=== PATIENT | female | born 1935 | race Caucasian/White ===

== ENCOUNTER 2016-10-27 15:55 | Inpatient (IN) | payer MEDICARE, OTHER ==
[~2016-10-27] VITALS: Ht 160 cm; Wt 49.5 kg
[~2016-10-27 15:55] MED LIST: ACET-1757 PO; ASPI-621 PO; ATOR40TA78 PO; BISA10SU2 PR; CARV6.2512 PO; CHOL20002 PO; DIGO125T10 PO; IPRA3AMP INH; LEVO25TA4 PO; LISI2.5T PO; LITH300T3 PO; WARF1TAB PO
[2016-10-27] MEDS ORDERED: SODIUM CHLORIDE FLUSH 10ML SYR IVF ONE (16:30)
[2016-10-27 16:59] LABS: ASPARTATE AMINO TRANSFERASE 18 U/L (15-37); BLOOD UREA NITROGEN 10 mg/dL (7-18)
[2016-10-27] MEDS ORDERED: SODIUM CHLORIDE 0.9%, 500ML IVBOLUS ONE (17:00)
[2016-10-27 17:05] LABS: IS PT STATUS REG ER OR PRE ER? YES
[2016-10-27] MEDS ORDERED: ENOXAPARIN 40 MG/0.4 ML SQ SCH (18:30)
[2016-10-27] MEDS ORDERED: BISACODYL 10 MG SUPP PR PRN (18:30)
[2016-10-27] MEDS ORDERED: DOCUSATE 100 MG CAPSULE PO PRN (18:30)
[2016-10-27] MEDS ORDERED: ACETAMINOPHEN 325 MG TABLET PO PRN (18:30)
[2016-10-27] MEDS ORDERED: ENALAPRILAT 1.25 MG/ML, 2ML IVPush PRN (18:30)
[2016-10-27 19:30] VITALS: BP 150/89
[2016-10-27 19:41] LABS: IS PT STATUS REG ER OR PRE ER? NO
[2016-10-27] MEDS ORDERED: WARFARIN 2 MG TABLET PO-COUM ONE (19:55)
[2016-10-27] MEDS: SODIUM CHLORIDE 0.9% 1,000 ML IV SCH (20:41)
[2016-10-27] MEDS: LITHIUM CARBONATE 300 MG CAPSULE PO SCH (20:42)
[2016-10-27 20:49] VITALS: BP 150/71
[2016-10-27] MEDS ORDERED: MAGNESIUM SULFATE PMX 2GM/50ML 50 ML IV ONE (21:30)
[2016-10-28 01:13] LABS: IS PT STATUS REG ER OR PRE ER? NO
[2016-10-28 03:02] VITALS: BP 118/61
[2016-10-28 05:25] LABS: HEMOGLOBIN 11.9 g/dL (11.7-16.4)
[2016-10-28 05:32] LABS: BLOOD UREA NITROGEN 11 mg/dL (7-18)
[2016-10-28 05:35] LABS: ASPARTATE AMINO TRANSFERASE 33 U/L (15-37)
[2016-10-28] MEDS: SODIUM CHLORIDE 0.9% 1,000 ML IV SCH (06:06)
[2016-10-28] MEDS: LEVOTHYROXINE 25 MCG TABLET PO SCH (06:06)
[2016-10-28 06:26] VITALS: BP 125/69
[2016-10-28] MEDS ORDERED: LISINOPRIL 5 MG TABLET PO SCH (09:00)
[2016-10-28 09:15] VITALS: BP 159/84
[2016-10-28] MEDS: LITHIUM CARBONATE 300 MG CAPSULE PO SCH ×2 (09:16→21:11)
[2016-10-28] MEDS ORDERED: ONDANSETRON 2MG/ML, 2ML IVPush PRN (10:30)
[2016-10-28] MEDS ORDERED: ENOXAPARIN 40 MG/0.4 ML SQ SCH ×2 (11:30→21:00)
[2016-10-28 13:50] VITALS: BP 156/65
[2016-10-28] MEDS ORDERED: WARFARIN 5 MG TABLET PO-COUM ONE (18:00)
[2016-10-28 18:36] VITALS: BP 138/65
[2016-10-29 02:13] VITALS: BP 159/78
[2016-10-29] MEDS: LEVOTHYROXINE 25 MCG TABLET PO SCH (05:25)
[2016-10-29 07:03] VITALS: BP 164/67
[2016-10-29] MEDS: LITHIUM CARBONATE 300 MG CAPSULE PO SCH (08:20)
[2016-10-29] MEDS ORDERED: LISINOPRIL 5 MG TABLET PO SCH (09:00)
[2016-10-29 09:53] VITALS: BP 120/64
[2016-10-29] MEDS ORDERED: ASPI-515 PO (10:58)
[2016-10-29] MEDS ORDERED: LISI2.5T PO (10:58)
== END 2016-10-29 14:20 | disposition home or self-care (01) | DRG 309 ==
LOC: ED 17:08 → EDIP 17:51 → 5SO 19:12 → DCLOUNGE 10-29 13:10
PROC: 0T9B70Z Drainage of Bladder with Drainage Device, Via Natural or Artificial Opening (ICD-10-PCS; principal; 2016-10-27)
DX: R00.1 Bradycardia, unspecified (principal); D68.69 Other thrombophilia; E44.0 Moderate protein-calorie malnutrition; Z68.1 Body mass index [BMI] 19.9 or less, adult; R55 Syncope and collapse; I10 Essential (primary) hypertension; I48.91 Unspecified atrial fibrillation; E03.9 Hypothyroidism, unspecified; E86.0 Dehydration; F31.9 Bipolar disorder, unspecified; I11.9 Hypertensive heart disease without heart failure; K52.9 Noninfective gastroenteritis and colitis, unspecified; K59.00 Constipation, unspecified; Z79.899 Other long term (current) drug therapy; Z82.49 Family history of ischemic heart disease and other diseases of the circulatory system; Z83.3 Family history of diabetes mellitus; I25.2 Old myocardial infarction; Z90.49 Acquired absence of other specified parts of digestive tract; Z93.3 Colostomy status; T46.0X5A Adverse effect of cardiac-stimulant glycosides and drugs of similar action, initial encounter; T44.7X5A Adverse effect of beta-adrenoreceptor antagonists, initial encounter
CPT/HCPCS: 36415; 71010; 80053; 80162; 80178; 81001; 82330; 83735; 83880; 84100; 84443; 84484; 85025; 85610; 85730; 87086; 93005; 99285; J1650; J3475; J7030; J7040

== ENCOUNTER → 2017-03-12 | Outpatient (CLI) | payer MEDICARE, OTHER ==
[~2017-03-12] MED LIST changes: +ASPI-515 PO; +LITH300T22 PO; +LOSA50TA6 PO
== END | disposition home or self-care (01) ==
LOC: WOUND 13:07
PROVIDERS: ATTEND Physician Assistant
DX: T81.89XD Other complications of procedures, not elsewhere classified, subsequent encounter (principal); F31.9 Bipolar disorder, unspecified; E03.9 Hypothyroidism, unspecified; I10 Essential (primary) hypertension; I51.7 Cardiomegaly; Z72.89 Other problems related to lifestyle; Z90.710 Acquired absence of both cervix and uterus; Y83.8 Other surgical procedures as the cause of abnormal reaction of the patient, or of later complication, without mention of misadventure at the time of the procedure
CPT/HCPCS: G0463; WOU0463

== ENCOUNTER → 2017-03-18 | Outpatient (CLI) | payer MEDICARE, OTHER ==
[2017-03-18 15:42] LABS: HEMATOCRIT 43.3 % (34.6-47.8); HEMOGLOBIN 14.3 g/dL (11.7-16.4); WHITE BLOOD COUNT 8.3 x10^3/uL (3.4-10)
[2017-03-18 15:52] LABS: ASPARTATE AMINO TRANSFERASE 20 U/L (15-37); BLOOD UREA NITROGEN 13 mg/dL (7-18)
== END | disposition home or self-care (01) ==
LOC: STAR 14:11
PROVIDERS: ATTEND Colon & Rectal Surgery
DX: Z01.818 Encounter for other preprocedural examination (principal); I51.7 Cardiomegaly
CPT/HCPCS: 36415; 80053; 85025; 93005

== ENCOUNTER 2017-03-25 05:51 | Inpatient (IN) | payer MEDICARE, OTHER ==
[2017-03-18 14:57] VITALS: BP 131/78
[~2017-03-25] VITALS: Ht 160 cm; Wt 46.5 kg
[2017-03-25] MEDS ORDERED: LACTATED RINGERS 1,000 ML IV SCH (06:28)
[2017-03-25] MEDS ORDERED: LIDOCAINE 1%, 2ML SQ PRN (06:30)
[2017-03-25] MEDS ORDERED: LEVO25TA4 PO (06:33)
[2017-03-25] MEDS ORDERED: MIDAZOLAM 1 MG/ML, 2ML ONE (06:46)
[2017-03-25] MEDS ORDERED: FENTANYL PF 1000 MCG/20ML ONE (06:46)
[2017-03-25] MEDS ORDERED: BUPIVACAINE/PF 0.5% ONE (06:50)
[2017-03-25] MEDS ORDERED: EPINEPHRINE 1 MG/ML, 1ML ONE (06:50)
[2017-03-25] MEDS ORDERED: GLYCOPYRROLATE 0.2MG/1ML ONE (07:40)
[2017-03-25] MEDS ORDERED: PROPOFOL 10 MG/ML, 20ML ONE (07:40)
[2017-03-25] MEDS ORDERED: DEXAMETHASONE 4 MG/ML, 1ML ONE (07:40)
[2017-03-25] MEDS ORDERED: ONDANSETRON 2MG/ML, 2ML ONE ×2 (07:40→09:47)
[2017-03-25] MEDS ORDERED: SUCCINYLCHOLINE 20 MG/ML, 10ML ONE (07:40)
[2017-03-25] MEDS ORDERED: CEFOTETAN 1 GM ONE (07:40)
[2017-03-25] MEDS ORDERED: ROCURONIUM 10 MG/ML ONE (07:40)
[2017-03-25] MEDS ORDERED: NEOSTIGMINE 1 MG/ML, 10ML ONE (07:40)
[2017-03-25] MEDS ORDERED: BUPIVACAINE/EPI 0.5% 1:200K IM ONE (08:13)
[2017-03-25] MEDS ORDERED: OXYcodone 5 MG/5 ML ORAL.SOL UDC PO PRN (08:30)
[2017-03-25] MEDS ORDERED: ACETAMINOPHEN 325 MG TABLET PO PRN (08:30)
[2017-03-25] MEDS ORDERED: FENTANYL PF 100 MCG/2ML IV PRN (08:30)
[2017-03-25] MEDS ORDERED: ONDANSETRON 2MG/ML, 2ML IVPush PRN (08:30)
[2017-03-25] MEDS ORDERED: LABETALOL 5MG/ML, 20ML IV PRN (08:30)
[2017-03-25] MEDS ORDERED: HYDROmorphone 1 MG/ML, 1ML IV PRN (08:30)
[2017-03-25] MEDS ORDERED: METOCLOPRAMIDE 5 MG/ML, 2ML IV PRN (08:30)
[2017-03-25] MEDS ORDERED: hydrALAzine 20 MG/ML, 1ML IV PRN (08:30)
[2017-03-25] MEDS ORDERED: HYDROmorphone 1 MG/ML, 1ML ONE (09:47)
[2017-03-25 11:00] VITALS: BP 164/71
[2017-03-25] MEDS ORDERED: ONDANSETRON 2MG/ML, 2ML IV PRN (11:30)
[2017-03-25] MEDS ORDERED: morphine SULFATE 10 MG/ML, 1ML IV PRN (11:30)
[2017-03-25] MEDS ORDERED: DIPHENHYDRAMINE 50 MG/ML, 1ML IV PRN (11:30)
[2017-03-25] MEDS ORDERED: DIPHENHYDRAMINE 25 MG CAPSULE PO PRN (11:30)
[2017-03-25] MEDS: POTASSIUM CHLORIDE 20 MEQ in SODIUM CHLORIDE 0.9% 1,000 ML IV SCH (12:36)
[2017-03-25] MEDS: KETOROLAC 30 MG/1 ML IV PRN ×2 (12:55→20:18)
[2017-03-25 13:39] VITALS: BP 136/69
[2017-03-25] MEDS: OXYcodone/APAP 5/325MG TABLET PO PRN ×2 (14:10→20:18)
[2017-03-25] MEDS: CEFOTETAN PMX 1GM/50ML 50 ML IVPB SCH (20:17)
[2017-03-25] MEDS: LITHIUM CARBONATE 300 MG CAPSULE PO SCH (20:17)
[2017-03-25 20:19] VITALS: BP 153/74
[2017-03-25 21:17] VITALS: BP 129/64
[2017-03-26] MEDS: OXYcodone/APAP 5/325MG TABLET PO PRN ×2 (00:21→14:39)
[2017-03-26 02:10] VITALS: BP 126/58
[2017-03-26 04:18] VITALS: BP 106/65
[2017-03-26] MEDS: LEVOTHYROXINE 25 MCG TABLET PO SCH (05:15)
[2017-03-26 05:52] LABS: BLOOD UREA NITROGEN 13 mg/dL (7-18)
[2017-03-26 08:00] VITALS: BP 102/57
[2017-03-26] MEDS: CEFOTETAN PMX 1GM/50ML 50 ML IVPB SCH (08:56)
[2017-03-26] MEDS: ENOXAPARIN 40 MG/0.4 ML SQ SCH (08:57)
[2017-03-26] MEDS: LITHIUM CARBONATE 300 MG CAPSULE PO SCH ×2 (08:58→19:22)
[2017-03-26] MEDS: KETOROLAC 30 MG/1 ML IV PRN ×2 (09:22→19:22)
[2017-03-26] MEDS: POTASSIUM CHLORIDE 20 MEQ in SODIUM CHLORIDE 0.9% 1,000 ML IV SCH (09:22)
[2017-03-26] MEDS ORDERED: POTASSIUM CHLORIDE 20 MEQ in SODIUM CHLORIDE 0.9% 1,000 ML IV SCH (10:00)
[2017-03-26 14:53] VITALS: BP 126/69
[2017-03-26] MEDS: LOSARTAN 25MG TABLET PO SCH (16:50)
[2017-03-26 18:56] VITALS: BP 132/67
[2017-03-27 01:48] VITALS: BP 135/64
[2017-03-27] MEDS: OXYcodone/APAP 5/325MG TABLET PO PRN ×3 (02:37→19:29)
[2017-03-27 05:01] LABS: HEMOGLOBIN 11.7 g/dL (11.7-16.4); WHITE BLOOD COUNT 10.8 x10^3/uL (3.4-10)
[2017-03-27] MEDS: LEVOTHYROXINE 25 MCG TABLET PO SCH (05:13)
[2017-03-27 05:15] LABS: BLOOD UREA NITROGEN 11 mg/dL (7-18)
[2017-03-27 07:59] VITALS: BP 136/67
[2017-03-27] MEDS: LITHIUM CARBONATE 300 MG CAPSULE PO SCH ×2 (09:10→19:29)
[2017-03-27] MEDS: LOSARTAN 25MG TABLET PO SCH (09:10)
[2017-03-27] MEDS: ENOXAPARIN 40 MG/0.4 ML SQ SCH (09:10)
[2017-03-27] MEDS: POLYETHYLENE GLYCOL 17 GM PACKET PO SCH (12:08)
[2017-03-27 13:20] VITALS: BP 150/68
[2017-03-27 19:28] VITALS: BP 157/69
[2017-03-27] MEDS: SODIUM CHLORIDE FLUSH 10ML SYR IVF SCH (19:29)
[2017-03-28 00:34] VITALS: BP 174/79
[2017-03-28] MEDS: OXYcodone/APAP 5/325MG TABLET PO PRN ×2 (01:37→07:47)
[2017-03-28] MEDS: LEVOTHYROXINE 25 MCG TABLET PO SCH (05:22)
[2017-03-28 06:00] LABS: BLOOD UREA NITROGEN 7 mg/dL (7-18)
[2017-03-28 06:04] LABS: HEMATOCRIT 36.8 % (34.6-47.8); HEMOGLOBIN 12.4 g/dL (11.7-16.4); WHITE BLOOD COUNT 10.4 x10^3/uL (3.4-10)
[2017-03-28] MEDS: LITHIUM CARBONATE 300 MG CAPSULE PO SCH (07:37)
[2017-03-28] MEDS: LOSARTAN 25MG TABLET PO SCH (07:37)
[2017-03-28] MEDS: ENOXAPARIN 40 MG/0.4 ML SQ SCH (07:38)
[2017-03-28] MEDS: SODIUM CHLORIDE FLUSH 10ML SYR IVF SCH (07:39)
[2017-03-28] MEDS: POLYETHYLENE GLYCOL 17 GM PACKET PO SCH (07:47)
[2017-03-28 07:55] VITALS: BP 174/67
[2017-03-28 08:53] VITALS: BP 149/68
[2017-03-28] MEDS ORDERED: OXYC-302 PO (12:57)
[2017-03-28] MEDS ORDERED: POLY17PO5 PO (12:58)
== END 2017-03-28 13:37 | disposition home or self-care (01) | DRG 329 ==
LOC: ORIP 05:51 → 4NOR 10:56
PROVIDERS: ADMIT Colon & Rectal Surgery; ATTEND Colon & Rectal Surgery
PROC: 0DBE0ZZ Excision of Large Intestine, Open Approach (ICD-10-PCS; 2017-03-25)
PROC: 0JB80ZZ Excision of Abdomen Subcutaneous Tissue and Fascia, Open Approach (ICD-10-PCS; 2017-03-25)
PROC: 0WUF0JZ Supplement Abdominal Wall with Synthetic Substitute, Open Approach (ICD-10-PCS; principal; 2017-03-25 07:30)
DX: K43.5 Parastomal hernia without obstruction or gangrene (principal); E43 Unspecified severe protein-calorie malnutrition; K94.03 Colostomy malfunction; E46 Unspecified protein-calorie malnutrition; K63.2 Fistula of intestine; Y83.3 Surgical operation with formation of external stoma as the cause of abnormal reaction of the patient, or of later complication, without mention of misadventure at the time of the procedure; K66.0 Peritoneal adhesions (postprocedural) (postinfection)
CPT/HCPCS: 36415; 80048; 82040; 83735; 85025; 88304; J0171; J1100; J1170; J1650; J1885; J2250; J2405; J2704; J2710; J3010; J3480; J3490; C1781; J0330; J0360; J7030; J7120; S0074

== ENCOUNTER 2017-04-12 13:39 | Emergency (ER) | payer MEDICARE, OTHER ==
[~2017-04-12] VITALS: Ht 160 cm; Wt 47.1 kg
[~2017-04-12 13:39] MED LIST changes: +OXYC-302 PO; +POLY17PO5 PO
[2017-04-12 13:41] VITALS: BP 173/76
[2017-04-12 14:15] LABS: HEMATOCRIT 44.5 % (34.6-47.8); HEMOGLOBIN 15.1 g/dL (11.7-16.4); WHITE BLOOD COUNT 10.2 x10^3/uL (3.4-10)
[2017-04-12 14:30] LABS: BLOOD UREA NITROGEN 12 mg/dL (7-18)
[2017-04-12 14:33] LABS: ASPARTATE AMINO TRANSFERASE 16 U/L (15-37)
[2017-04-12] MEDS ORDERED: METHYLNALTREXONE 12 MG/0.6 ML SQ ONE (15:00)
== END 2017-04-12 15:55 | disposition home or self-care (01) ==
LOC: ED 15:40
DX: R10.31 Right lower quadrant pain (principal); E03.9 Hypothyroidism, unspecified; Z93.3 Colostomy status; Z88.8 Allergy status to other drugs, medicaments and biological substances
CPT/HCPCS: 36415; 74022; 80053; 85025; 96372

== ENCOUNTER → 2017-08-06 | Outpatient (CLI) | payer MEDICARE, OTHER | END | disposition home or self-care (01) | LOC: WOUND 07:51 | PROVIDERS: ATTEND Family Medicine | DX: T81.89XD Other complications of procedures, not elsewhere classified, subsequent encounter (principal); E78.5 Hyperlipidemia, unspecified; Y83.8 Other surgical procedures as the cause of abnormal reaction of the patient, or of later complication, without mention of misadventure at the time of the procedure | CPT/HCPCS: G0463; WOU0463 ==

== ENCOUNTER → 2017-08-20 | Outpatient (CLI) | payer MEDICARE, OTHER | END | disposition home or self-care (01) | LOC: WOUND 08:46 | PROVIDERS: ATTEND Family Medicine | DX: Z43.3 Encounter for attention to colostomy (principal); F31.9 Bipolar disorder, unspecified; I10 Essential (primary) hypertension; E03.9 Hypothyroidism, unspecified; E78.5 Hyperlipidemia, unspecified; Z72.89 Other problems related to lifestyle | CPT/HCPCS: G0463; WOU0463 ==

== ENCOUNTER → 2017-12-21 | Outpatient (CLI) | payer MEDICARE, OTHER | END | disposition home or self-care (01) | LOC: WOUND 10:22 | PROVIDERS: ATTEND Internal Medicine Infectious Disease | DX: Z93.3 Colostomy status (principal); F31.9 Bipolar disorder, unspecified; I10 Essential (primary) hypertension; E78.5 Hyperlipidemia, unspecified; E03.9 Hypothyroidism, unspecified | CPT/HCPCS: G0463; WOU0463 ==

== ENCOUNTER → 2018-01-18 | Outpatient (CLI) | payer MEDICARE, OTHER | END | disposition home or self-care (01) | LOC: WOUND 10:47 | PROVIDERS: ATTEND Internal Medicine Infectious Disease | DX: Z93.3 Colostomy status (principal); E78.5 Hyperlipidemia, unspecified; E03.9 Hypothyroidism, unspecified; I10 Essential (primary) hypertension; F31.9 Bipolar disorder, unspecified; Z90.710 Acquired absence of both cervix and uterus | CPT/HCPCS: G0463; WOU0463 ==

== ENCOUNTER → 2019-09-25 | Outpatient (CLI) | payer MEDICARE, OTHER ==
[~2019-09-25] MED LIST changes: -ACET-1757 PO; +ACET-2065 PO; -ASPI-621 PO; +ASPI81TA45 PO; -BISA10SU2 PR; +BISA10SU4 PR; -IPRA3AMP INH; +IPRA3AMP30 INH; +LOSA50TA14 PO; -LOSA50TA6 PO
== END | disposition home or self-care (01) ==
LOC: WOUND 14:11
PROVIDERS: ATTEND Internal Medicine
DX: Z93.3 Colostomy status (principal); E78.5 Hyperlipidemia, unspecified; E03.9 Hypothyroidism, unspecified; F31.9 Bipolar disorder, unspecified; I48.0 Paroxysmal atrial fibrillation; I12.9 Hypertensive chronic kidney disease with stage 1 through stage 4 chronic kidney disease, or unspecified chronic kidney disease; N18.2 Chronic kidney disease, stage 2 (mild); Z90.710 Acquired absence of both cervix and uterus
CPT/HCPCS: G0463

== ENCOUNTER 2020-02-19 06:44 | Emergency (ER) | payer MEDICARE, OTHER ==
[~2020-02-19] VITALS: Ht 162.6 cm; Wt 48.2 kg
[~2020-02-19 06:44] MED LIST changes: -WARF1TAB PO; +WARF1TAB2 PO
--- NOTE | 2020-02-19 07:33 | NUR ---
PT AMBULATED W/ A STANDBY ASSIST TO THE BR. UNABLE TO PROVIDE URINE FOR SAMPLE. PT RETURNED TO ROOM. STRAIGHT CATH'D FOR URINE W/O INCIDENT. PT RESTING ON GURNEY W/ CALL LIGHT IN REACH AND FAMILY AT BEDSIDE. LAB IN ROOM.
[2020-02-19 07:44] LABS: MICROSCOPIC INDICATED
[2020-02-19 07:53] LABS: ALBUMIN 4.1 g/dL (3.4-5.0); ANION GAP 6 mmol/L (5-15); CHLORIDE 104 mmol/L (98-107); CREATININE 1.38 mg/dL (0.55-1.02)
[2020-02-19 08:02] LABS: BASOPHILS # (AUTO) 0.05 x10^3/uL (0-0.1); BASOPHILS % (AUTO) 1 % (0-1); EOSINOPHILS # (AUTO) 0.27 x10^3/uL (0-0.4); EOSINOPHILS % (AUTO) 3 % (1-7); LYMPHOCYTES # (AUTO) 2.41 x10^3/uL (1-3.4); LYMPHOCYTES % (AUTO) 26 % (22-44); MD NO; MEAN CORPUSCULAR HEMOGLOBIN 31.3 pg (27.0-34.8); MEAN CORPUSCULAR HGB CONC 32.1 g/dL (32.4-35.8); MEAN PLATELET VOLUME 8.4 fL (7.4-10.4); MONOCYTES # (AUTO) 0.49 x10^3/uL (0.2-0.8); MONOCYTES % (AUTO) 5 % (2-9); NEUTROPHILS # (AUTO) 5.94 x10^3/uL (1.8-6.8); NEUTROPHILS % (AUTO) 65 % (42-75); PLATELET COUNT 216 x10^3/uL (130-400); RED CELL DISTRIBUTION WIDTH 12.2 % (9.6-15.2)
[2020-02-19 08:25] VITALS: BP 113/93
--- NOTE | 2020-02-19 08:33 | NUR ---
ALL TESTS RESULTED PT IS UP FOR RECHECK, AT BEDSIDE.
[2020-02-19] MEDS ORDERED: CEFTRIAXONE 1,000 MG ONE (08:44)
[2020-02-19] MEDS ORDERED: LIDOCAINE-MPF 1%, 5ML ONE (08:44)
[2020-02-19] MEDS ORDERED: CEFTRIAXONE 1,000 MG IM ONE (09:00)
--- NOTE | 2020-02-19 09:02 | NUR ---
Patient given discharge instructions and they have confirmed that they understand the instructions. Patient wheeled to dc desk.
== END 2020-02-19 09:08 | disposition home or self-care (01) ==
LOC: ED 07:42
DX: N30.00 Acute cystitis without hematuria (principal); Z51.81 Encounter for therapeutic drug level monitoring; E03.9 Hypothyroidism, unspecified
CPT/HCPCS: 36415; 80048; 80178; 81001; 82040; 85025; 87077; 87086; 96372; 99283; J0696

== ENCOUNTER 2020-02-21 23:32 | Observation (INO) | payer MEDICARE, OTHER ==
[~2020-02-21] VITALS: Ht 162.6 cm; Wt 49.6 kg
--- NOTE | 2020-02-21 23:48 | NUR ---
PT BIB [facility] FOR LOWER QUADRANT, BILATERAL, ABDOMINAL PAIN X 2 DAYS WITH NO STOOL OUTPUT INTO COLOSTOMY. PT RECENTLY BEING TREATED FOR UTI WITH OMNICEF, BUT STILL HAVING URINARY SYMPTOMS. UPON ARRIVAL TO [facility] ED, PT ATTACHED TO VS AND CARDIAC MONITORS. VSS AT THIS TIME. PT EDUCATED ON ER PROCESS AND POC WITH DR. LOVE AT . PER EMS, PT ON HIS WAY. PERIPHERAL IV ACCESS ESTABLISHED BY EMS EN ROUTE TO [facility] ED. PT RECEIVED 50MCG FENTANYL AND 250 ML OF NS EN ROUTE. PT HAS CALL LIGHT WITHIN REACH AND DENIES ANY OTHER NEEDS AT THIS TIME. PT AMBULATES TO RESTROOM WITH STEADY GAIT AT THIS TIME FOR UA.
[2020-02-22] MEDS ORDERED: SODIUM CHLORIDE 0.9% 1,000ML IVBOLUS ONE
[2020-02-22] MEDS ORDERED: MORPHINE SULFATE 4 MG/ML, 1ML IVPush PRN
[2020-02-22] MEDS ORDERED: ONDANSETRON 2MG/ML, 2ML IVPush ONE
[2020-02-22 00:20] LABS: BASOPHILS # (AUTO) 0.03 x10^3/uL (0-0.1); BASOPHILS % (AUTO) 0 % (0-1); EOSINOPHILS # (AUTO) 0.24 x10^3/uL (0-0.4); EOSINOPHILS % (AUTO) 3 % (1-7); LYMPHOCYTES # (AUTO) 2.46 x10^3/uL (1-3.4); LYMPHOCYTES % (AUTO) 30 % (22-44); MD NO; MEAN CORPUSCULAR HEMOGLOBIN 32.5 pg (27.0-34.8); MEAN CORPUSCULAR HGB CONC 33.5 g/dL (32.4-35.8); MEAN PLATELET VOLUME 8.5 fL (7.4-10.4); MONOCYTES # (AUTO) 0.43 x10^3/uL (0.2-0.8); MONOCYTES % (AUTO) 5 % (2-9); NEUTROPHILS # (AUTO) 4.99 x10^3/uL (1.8-6.8); NEUTROPHILS % (AUTO) 61 % (42-75); PLATELET COUNT 197 x10^3/uL (130-400); RED BLOOD COUNT 4.44 x10^6/uL (3.82-5.3); RED CELL DISTRIBUTION WIDTH 12.9 % (9.6-15.2)
[2020-02-22 00:32] LABS: ALANINE AMINOTRANSFERASE 31 U/L (12-78); ALBUMIN 3.8 g/dL (3.4-5.0); ANION GAP 7 mmol/L (5-15); CALCIUM 9.2 mg/dL (8.5-10.1); CHLORIDE 106 mmol/L (98-107); CREATININE 1.19 mg/dL (0.55-1.02)
[2020-02-22 00:32] LABS: MICROSCOPIC INDICATED
[2020-02-22 00:35] LABS: ALKALINE PHOSPHATASE 59 U/L (45-117); BILIRUBIN,TOTAL 0.8 mg/dL (0.2-1.0)
--- NOTE | 2020-02-22 00:50 | NUR ---
PT AMBULATES TO [facility] WITH STEADY GAIT TO VOID. PT BACK IN [facility] AND REATTACHED TO ALL VS AND CARDIAC MONITORS. VSS AT THIS TIME. PT TO CT VIA [facility] AT THIS TIME.
[2020-02-22] MEDS ORDERED: OMNIPAQUE 350 MG/ML, 100ML BOTTLE ONE (01:04)
--- NOTE | 2020-02-22 01:05 | NUR ---
pt back from ct via [facility] at this time.
[2020-02-22] MEDS ORDERED: CEFTRIAXONE PMX 1GM/50ML 50 ML ONE (02:38)
[2020-02-22] MEDS ORDERED: CEFD300C37 PO (02:41)
[2020-02-22] MEDS ORDERED: CEFTRIAXONE PMX 1GM/50ML 50 ML IV ONE (03:00)
--- NOTE | 2020-02-22 04:20 | NUR ---
, WILLIAN, POINT OF CARE CONTACT. [phone], CALL FOR UPDATES.
[2020-02-22 04:27] VITALS: BP 179/89
[2020-02-22] MEDS ORDERED: morphine SULFATE 10 MG/ML, 1ML IVPush PRN (05:00)
[2020-02-22] MEDS ORDERED: POTASSIUM CHLORIDE 40 MEQ in SODIUM CHLORIDE 0.9% 500 ML IV ONE (05:00)
[2020-02-22] MEDS ORDERED: LABETALOL 5MG/ML, 20ML IVPush PRN (05:00)
[2020-02-22] MEDS ORDERED: ONDANSETRON 2MG/ML, 2ML IVPush PRN (05:00)
[2020-02-22] MEDS ORDERED: LACTATED RINGERS 1,000 ML IV SCH (05:00)
[2020-02-22 06:45] VITALS: BP 195/93
[2020-02-22 08:00] VITALS: BP 201/105
[2020-02-22 08:58] VITALS: BP 133/75
[2020-02-22 13:25] VITALS: BP 105/62
[2020-02-22] MEDS ORDERED: POLYETHYLENE GLYCOL 17 GM PACKET PO PRN (18:00)
[2020-02-22 19:15] VITALS: BP 150/85
[2020-02-22] MEDS ORDERED: LEVOTHYROXINE 25 MCG TABLET PO SCH (21:00)
[2020-02-23 00:20] VITALS: BP 165/80
[2020-02-23] MEDS ORDERED: CEFTRIAXONE PMX 1GM/50ML 50 ML IV SCH (03:00)
[2020-02-23 05:00] LABS: BASOPHILS # (AUTO) 0.03 x10^3/uL (0-0.1); BASOPHILS % (AUTO) 1 % (0-1); EOSINOPHILS # (AUTO) 0.31 x10^3/uL (0-0.4); EOSINOPHILS % (AUTO) 5 % (1-7); LYMPHOCYTES # (AUTO) 2.11 x10^3/uL (1-3.4); LYMPHOCYTES % (AUTO) 31 % (22-44); MD NO; MEAN CORPUSCULAR HEMOGLOBIN 32.5 pg (27.0-34.8); MEAN CORPUSCULAR HGB CONC 33.2 g/dL (32.4-35.8); MEAN CORPUSCULAR VOLUME 97.7 fL (80-100); MEAN PLATELET VOLUME 8.7 fL (7.4-10.4); MONOCYTES # (AUTO) 0.39 x10^3/uL (0.2-0.8); MONOCYTES % (AUTO) 6 % (2-9); NEUTROPHILS # (AUTO) 4.08 x10^3/uL (1.8-6.8); NEUTROPHILS % (AUTO) 59 % (42-75); PLATELET COUNT 191 x10^3/uL (130-400); RED BLOOD COUNT 4.33 x10^6/uL (3.82-5.3); RED CELL DISTRIBUTION WIDTH 12.9 % (9.6-15.2)
[2020-02-23 05:11] LABS: ANION GAP 3 mmol/L (5-15); CALCIUM 8.7 mg/dL (8.5-10.1); CHLORIDE 113 mmol/L (98-107); CREATININE 0.87 mg/dL (0.55-1.02)
[2020-02-23 06:58] VITALS: BP 131/69
[2020-02-23] MEDS ORDERED: POTASSIUM CHLORIDE 20 MEQ TAB.ER.PRT PO SCH (08:00)
[2020-02-23] MEDS ORDERED: POLYETHYLENE GLYCOL 17 GM PACKET PO SCH (09:23)
[2020-02-23] MEDS ORDERED: CEPH-368 PO (10:02)
[2020-02-23] MEDS ORDERED: POLY17PO5 PO (10:02)
== END 2020-02-23 12:04 | disposition home or self-care (01) ==
LOC: ED 02-22 00:26 → EDIP 02-22 03:40 → INTOOBSV 02-22 03:40 → 3N 02-22 04:23 → DCLOUNGE 02-23 11:46
PROVIDERS: ADMIT Family Medicine; ATTEND Family Medicine
DX: K43.3 Parastomal hernia with obstruction, without gangrene (principal); E87.6 Hypokalemia; K59.00 Constipation, unspecified; N39.0 Urinary tract infection, site not specified; B95.4 Other streptococcus as the cause of diseases classified elsewhere; E86.0 Dehydration; I48.0 Paroxysmal atrial fibrillation; E03.9 Hypothyroidism, unspecified; I10 Essential (primary) hypertension; F31.9 Bipolar disorder, unspecified; N17.0 Acute kidney failure with tubular necrosis; Z90.49 Acquired absence of other specified parts of digestive tract; Z93.3 Colostomy status
CPT/HCPCS: 36415; 74177; 80048; 80053; 81001; 83605; 83690; 83735; 85025; 87086; 96361; 96365; 96366; 96367; 96375; 99285; G0378; J0696; J2405; J3480; J7030; J7040; J7120; Q9967

== ENCOUNTER 2020-03-01 16:03 | Inpatient (IN) | payer MEDICARE, OTHER ==
[~2020-03-01] VITALS: Ht 162.6 cm; Wt 50.0 kg
[~2020-03-01 16:03] MED LIST changes: +CEFD300C37 PO; +CEPH-368 PO; +OMNIPAQUE 350 MG/ML, 100ML BOTTLE ONE
[2020-03-01] MEDS ORDERED: MORPHINE SULFATE 4 MG/ML, 1ML ONE (16:55)
[2020-03-01] MEDS ORDERED: ONDANSETRON 2MG/ML, 2ML ONE ×2 (16:55→19:07)
[2020-03-01] MEDS ORDERED: ONDANSETRON 2MG/ML, 2ML IVPush ONE (17:00)
[2020-03-01] MEDS ORDERED: SODIUM CHLORIDE 0.9% 1,000ML IVBOLUS ONE (17:00)
[2020-03-01] MEDS ORDERED: MORPHINE SULFATE 4 MG/ML, 1ML IVPush PRN ×2 (17:00→23:00)
[2020-03-01 17:01] LABS: BASOPHILS # (AUTO) 0.03 x10^3/uL (0-0.1); BASOPHILS % (AUTO) 0 % (0-1); EOSINOPHILS # (AUTO) 0.05 x10^3/uL (0-0.4); EOSINOPHILS % (AUTO) 1 % (1-7); LYMPHOCYTES # (AUTO) 1.27 x10^3/uL (1-3.4); LYMPHOCYTES % (AUTO) 11 % (22-44); MD NO; MEAN CORPUSCULAR HEMOGLOBIN 32.2 pg (27.0-34.8); MEAN CORPUSCULAR HGB CONC 33.3 g/dL (32.4-35.8); MONOCYTES # (AUTO) 0.28 x10^3/uL (0.2-0.8); MONOCYTES % (AUTO) 3 % (2-9); NEUTROPHILS # (AUTO) 9.63 x10^3/uL (1.8-6.8); NEUTROPHILS % (AUTO) 86 % (42-75); PLATELET COUNT 192 x10^3/uL (130-400); RED BLOOD COUNT 4.89 x10^6/uL (3.82-5.3); RED CELL DISTRIBUTION WIDTH 12.6 % (9.6-15.2)
--- NOTE | 2020-03-01 17:02 | NUR ---
PIV PLACED, LABS DRAWN AND SENT TO LAB WITH LAB STICKERS. IVF RUNNING, MEDS ADMIN PER SEP. PT PREVIOUSLY AMBULATED TO RESTROOM WITH SBA. SPOUSE AT BEDSIDE. PT RESTING COMFORTABLY. NADN. PT DOES NOT WANT BLANKET AT THIS TIME.
[2020-03-01 17:13] LABS: ALANINE AMINOTRANSFERASE 37 U/L (12-78); ALBUMIN 3.6 g/dL (3.4-5.0); ANION GAP 9 mmol/L (5-15); CALCIUM 8.7 mg/dL (8.5-10.1); CHLORIDE 104 mmol/L (98-107); CREATININE 1.05 mg/dL (0.55-1.02)
[2020-03-01 17:15] LABS: ALKALINE PHOSPHATASE 75 U/L (45-117); TOTAL PROTEIN 7.6 g/dL (6.4-8.2)
--- NOTE | 2020-03-01 17:22 | NUR ---
PT AT CT
[2020-03-01] MEDS ORDERED: OMNIPAQUE 350 MG/ML, 100ML BOTTLE ONE (17:24)
--- NOTE | 2020-03-01 17:51 | NUR ---
PT ATTEMPTED TO PROVIDE STOOL FROM OSTOMY, W/O SUCCESS. NO STOOL IN OSTOMY BAG.
--- NOTE | 2020-03-01 18:01 | NUR ---
MD AT BEDSIDE TO UPDATE PT AND SPOUSE ON POC.
--- NOTE | 2020-03-01 18:22 | NUR ---
PT TO BE ADMITTED FOR SURGERY FOR HERNIA.
--- NOTE | 2020-03-01 18:27 | NUR ---
REPORT GIVEN TO OR. PT GOING TO OR SHORTLY.
[2020-03-01] MEDS ORDERED: CHLORHEXIDINE 15 ML UDC ONE (18:30)
[2020-03-01] MEDS ORDERED: BISACODYL 10 MG SUPP PR PRN (19:00)
[2020-03-01] MEDS ORDERED: morphine SULFATE 10 MG/ML, 1ML IVPush PRN (19:00)
[2020-03-01] MEDS ORDERED: FENTANYL PF 100 MCG/2ML ONE ×2 (19:00→21:31)
[2020-03-01] MEDS ORDERED: ACETAMINOPHEN 325 MG TABLET PO PRN (19:00)
[2020-03-01] MEDS ORDERED: ONDANSETRON 2MG/ML, 2ML IVPush PRN (19:00)
[2020-03-01] MEDS ORDERED: NS + 40MEQ KCL 1,000 ML IV SCH (19:00)
[2020-03-01] MEDS ORDERED: PROPOFOL 10 MG/ML, 20ML ONE (19:07)
[2020-03-01] MEDS ORDERED: SUCCINYLCHOLINE 20 MG/ML, 10ML ONE (19:07)
[2020-03-01] MEDS ORDERED: NEOSTIGMINE 1 MG/ML, 10ML ONE (19:07)
[2020-03-01] MEDS ORDERED: GLYCOPYRROLATE 0.2MG/1ML, 5ML ONE (19:07)
[2020-03-01] MEDS ORDERED: DEXAMETHASONE 4 MG/ML, 1ML ONE (19:07)
[2020-03-01] MEDS ORDERED: CEFAZOLIN 1,000 MG ONE (19:07)
[2020-03-01] MEDS ORDERED: ROCURONIUM 10MG/ML,5ML ONE (19:07)
[2020-03-01] MEDS ORDERED: CEFOTETAN 2 GM ONE (19:09)
[2020-03-01] MEDS ORDERED: EPHEDRINE 50 MG/ML, 1ML ONE (19:09)
[2020-03-01] MEDS ORDERED: PHENYLEPHRINE 10 MG/ML ONE (19:09)
[2020-03-01] MEDS ORDERED: SUGAMMADEX 200 MG/2 ML IVPush ONE (19:09)
[2020-03-01] MEDS ORDERED: OXYcodone 5 MG/5 ML ORAL.SOL UDC PO PRN (20:00)
[2020-03-01] MEDS ORDERED: HYDROcodone/APAP 7.5-325MG/15ML UDC PO PRN (20:00)
[2020-03-01] MEDS ORDERED: HYDROmorphone 1 MG/ML, 1ML INJ IVPush PRN (20:00)
[2020-03-01] MEDS ORDERED: PROMETHAZINE 25 MG/ML, 1ML IVPush PRN (20:00)
[2020-03-01] MEDS ORDERED: POTASSIUM CHLORIDE 20 MEQ in SODIUM CHLORIDE 0.9% 250 ML IV ONE (20:00)
[2020-03-01] MEDS ORDERED: MEPERIDINE/PF 25MG/0.5ML IVPush PRN (20:00)
[2020-03-01] MEDS ORDERED: FENTANYL PF 100 MCG/2ML IV PRN (20:00)
[2020-03-01] MEDS ORDERED: LABETALOL 5MG/ML, 20ML ONE (20:42)
[2020-03-01] MEDS ORDERED: ACETAMINOPHEN 650 MG/20.3 ML UDC ONE (21:31)
[2020-03-01] MEDS ORDERED: LABETALOL 5MG/ML, 20ML IV PRN (22:00)
[2020-03-01] MEDS ORDERED: TRAZODONE 50MG TABLET PO PRN (23:00)
[2020-03-01] MEDS ORDERED: DIPHENHYDRAMINE 50 MG/ML, 1ML IVPush PRN (23:00)
[2020-03-01] MEDS ORDERED: LACTATED RINGERS 1,000 ML IV SCH (23:00)
[2020-03-01] MEDS ORDERED: ONDANSETRON 2MG/ML, 2ML IV PRN (23:00)
[2020-03-01] MEDS ORDERED: SCOPOLAMINE 1MG PATCH TD PRN (23:00)
[2020-03-01] MEDS ORDERED: DEXAMETHASONE 4 MG/ML, 1ML IVPush PRN (23:00)
[2020-03-01] MEDS ORDERED: DIPHENHYDRAMINE 25 MG CAPSULE PO PRN (23:00)
[2020-03-01] MEDS ORDERED: LORazepam 2 MG/ML, 1ML IVPush PRN (23:00)
[2020-03-01] MEDS ORDERED: HALOPERIDOL 5 MG/ML IVPush PRN (23:00)
[2020-03-01] MEDS ORDERED: CALCIUM CARBONATE 500 MG TAB.CHEW PO PRN (23:00)
[2020-03-01] MEDS ORDERED: LORazepam 1MG TABLET PO PRN (23:00)
[2020-03-01] MEDS: KETOROLAC 30 MG/1 ML IVPush SCH (23:12)
[2020-03-02 01:01] VITALS: BP 131/81
[2020-03-02 03:17] LABS: ANION GAP 8 mmol/L (5-15); CALCIUM 7.9 mg/dL (8.5-10.1); CHLORIDE 114 mmol/L (98-107); CREATININE 1.04 mg/dL (0.55-1.02)
[2020-03-02 03:24] LABS: BASOPHILS # (AUTO) 0.01 x10^3/uL (0-0.1); BASOPHILS % (AUTO) 0 % (0-1); EOSINOPHILS % (AUTO) 0 % (1-7); LYMPHOCYTES # (AUTO) 0.46 x10^3/uL (1-3.4); LYMPHOCYTES % (AUTO) 5 % (22-44); MD NO; MEAN CORPUSCULAR HEMOGLOBIN 32.4 pg (27.0-34.8); MEAN CORPUSCULAR HGB CONC 33.7 g/dL (32.4-35.8); MEAN PLATELET VOLUME 8.2 fL (7.4-10.4); MONOCYTES # (AUTO) 0.24 x10^3/uL (0.2-0.8); MONOCYTES % (AUTO) 3 % (2-9); NEUTROPHILS # (AUTO) 7.72 x10^3/uL (1.8-6.8); NEUTROPHILS % (AUTO) 92 % (42-75); PLATELET COUNT 163 x10^3/uL (130-400); RED BLOOD COUNT 4.19 x10^6/uL (3.82-5.3); RED CELL DISTRIBUTION WIDTH 12.9 % (9.6-15.2)
[2020-03-02] MEDS: ACETAMINOPHEN 500 MG TABLET PO SCH ×4 (04:01→22:35)
[2020-03-02] MEDS: KETOROLAC 30 MG/1 ML IVPush SCH ×4 (05:15→23:33)
[2020-03-02 05:16] VITALS: BP 119/60
[2020-03-02] MEDS ORDERED: MAGNESIUM SULFATE PMX 2GM/50ML 50 ML IV ONE (07:00)
[2020-03-02 08:00] VITALS: BP 118/66
[2020-03-02] MEDS: ENOXAPARIN 40 MG/0.4 ML SQ SCH (08:45)
[2020-03-02] MEDS: POTASSIUM CHLORIDE 40 MEQ in SODIUM CHLORIDE 0.9% 1,000 ML IV SCH ×2 (08:45→23:32)
[2020-03-02 13:40] VITALS: BP 110/62
[2020-03-02] MEDS: LEVOTHYROXINE 25 MCG TABLET PO SCH (21:00)
[2020-03-02 21:57] VITALS: BP 172/68
[2020-03-03 01:12] VITALS: BP 142/68
[2020-03-03 03:27] LABS: BASOPHILS # (AUTO) 0.02 x10^3/uL (0-0.1); BASOPHILS % (AUTO) 0 % (0-1); EOSINOPHILS # (AUTO) 0.19 x10^3/uL (0-0.4); EOSINOPHILS % (AUTO) 2 % (1-7); LYMPHOCYTES % (AUTO) 13 % (22-44); MD NO; MEAN CORPUSCULAR HEMOGLOBIN 32.3 pg (27.0-34.8); MEAN CORPUSCULAR HGB CONC 33.3 g/dL (32.4-35.8); MEAN PLATELET VOLUME 8.3 fL (7.4-10.4); MONOCYTES # (AUTO) 0.44 x10^3/uL (0.2-0.8); MONOCYTES % (AUTO) 5 % (2-9); NEUTROPHILS # (AUTO) 6.93 x10^3/uL (1.8-6.8); NEUTROPHILS % (AUTO) 80 % (42-75); PLATELET COUNT 144 x10^3/uL (130-400); RED BLOOD COUNT 3.71 x10^6/uL (3.82-5.3); RED CELL DISTRIBUTION WIDTH 13.1 % (9.6-15.2)
[2020-03-03 03:37] LABS: ALANINE AMINOTRANSFERASE 43 U/L (12-78); ALBUMIN 2.4 g/dL (3.4-5.0); ANION GAP 6 mmol/L (5-15); CALCIUM 7.7 mg/dL (8.5-10.1); CHLORIDE 112 mmol/L (98-107); CREATININE 0.79 mg/dL (0.55-1.02)
[2020-03-03 03:40] LABS: ALKALINE PHOSPHATASE 63 U/L (45-117); BILIRUBIN,TOTAL 0.4 mg/dL (0.2-1.0); TOTAL PROTEIN 5.7 g/dL (6.4-8.2)
[2020-03-03] MEDS: ACETAMINOPHEN 500 MG TABLET PO SCH ×4 (04:38→21:54)
[2020-03-03] MEDS: KETOROLAC 30 MG/1 ML IVPush SCH ×3 (04:38→17:14)
[2020-03-03] MEDS: LEVOTHYROXINE 25 MCG TABLET PO SCH (06:14)
[2020-03-03 08:58] VITALS: BP 168/73
[2020-03-03] MEDS: SODIUM CHLORIDE FLUSH 3ML SYRINGE IVF SCH ×2 (09:00→21:54)
[2020-03-03] MEDS: ENOXAPARIN 40 MG/0.4 ML SQ SCH (09:52)
[2020-03-03] MEDS ORDERED: OXYC-302 PO (13:27)
[2020-03-03 13:58] VITALS: BP 149/76
[2020-03-03 17:02] LABS: MICROSCOPIC NOT IND
[2020-03-03] MEDS: OXYcodone IR 5MG TABLET PO PRN (19:51)
[2020-03-03 20:48] VITALS: BP 176/84
[2020-03-04] MEDS: KETOROLAC 30 MG/1 ML IVPush SCH (00:07)
[2020-03-04] MEDS: OXYcodone IR 5MG TABLET PO PRN ×3 (00:16→09:55)
[2020-03-04 02:32] VITALS: BP 147/76
[2020-03-04 03:19] LABS: BASOPHILS # (AUTO) 0.02 x10^3/uL (0-0.1); BASOPHILS % (AUTO) 0 % (0-1); EOSINOPHILS # (AUTO) 0.35 x10^3/uL (0-0.4); EOSINOPHILS % (AUTO) 5 % (1-7); LYMPHOCYTES # (AUTO) 1.08 x10^3/uL (1-3.4); LYMPHOCYTES % (AUTO) 14 % (22-44); MD NO; MEAN CORPUSCULAR HEMOGLOBIN 32.2 pg (27.0-34.8); MEAN CORPUSCULAR HGB CONC 33.1 g/dL (32.4-35.8); MEAN PLATELET VOLUME 8.1 fL (7.4-10.4); MONOCYTES % (AUTO) 4 % (2-9); NEUTROPHILS # (AUTO) 5.89 x10^3/uL (1.8-6.8); NEUTROPHILS % (AUTO) 77 % (42-75); PLATELET COUNT 143 x10^3/uL (130-400); RED BLOOD COUNT 3.98 x10^6/uL (3.82-5.3); RED CELL DISTRIBUTION WIDTH 13.1 % (9.6-15.2)
[2020-03-04 03:30] LABS: ANION GAP 7 mmol/L (5-15); CALCIUM 7.9 mg/dL (8.5-10.1); CHLORIDE 110 mmol/L (98-107); CREATININE 0.67 mg/dL (0.55-1.02)
[2020-03-04] MEDS: ACETAMINOPHEN 500 MG TABLET PO SCH ×2 (03:49→08:42)
[2020-03-04 06:46] VITALS: BP 159/78
[2020-03-04] MEDS: LEVOTHYROXINE 25 MCG TABLET PO SCH (07:46)
[2020-03-04] MEDS: ENOXAPARIN 40 MG/0.4 ML SQ SCH (08:42)
[2020-03-04] MEDS: SODIUM CHLORIDE FLUSH 3ML SYRINGE IVF SCH (08:43)
[2020-03-04] MEDS ORDERED: LITHIUM CARBONATE 300 MG TABLET.ER PO SCH (12:00)
[2020-03-04 13:40] VITALS: BP 146/79
== END 2020-03-04 15:35 | disposition home or self-care (01) | DRG 336 ==
LOC: ED 17:56 → EDIP 18:25 → 4NE 22:08 → DCLOUNGE 03-04 15:23
PROVIDERS: ADMIT Family Medicine; ATTEND Internal Medicine
PROC: 0DNL0ZZ Release Transverse Colon, Open Approach (ICD-10-PCS; 2020-03-01)
PROC: 0DNW0ZZ Release Peritoneum, Open Approach (ICD-10-PCS; 2020-03-01)
PROC: 0WQF0ZZ Repair Abdominal Wall, Open Approach (ICD-10-PCS; 2020-03-01)
PROC: 0DJU0ZZ Inspection of Omentum, Open Approach (ICD-10-PCS; 2020-03-01)
PROC: 0DNK0ZZ Release Ascending Colon, Open Approach (ICD-10-PCS; principal; 2020-03-01 19:00)
DX: K43.3 Parastomal hernia with obstruction, without gangrene (principal); I48.20 Chronic atrial fibrillation, unspecified; D68.69 Other thrombophilia; K56.50 Intestinal adhesions [bands], unspecified as to partial versus complete obstruction; E03.9 Hypothyroidism, unspecified; E83.42 Hypomagnesemia; E87.6 Hypokalemia; F31.9 Bipolar disorder, unspecified; I10 Essential (primary) hypertension; Z66 Do not resuscitate; K59.09 Other constipation; Z20.828 Contact with and (suspected) exposure to other viral communicable diseases; Z82.49 Family history of ischemic heart disease and other diseases of the circulatory system; Z83.3 Family history of diabetes mellitus; Z90.49 Acquired absence of other specified parts of digestive tract; Z91.81 History of falling; Z93.3 Colostomy status; Z88.8 Allergy status to other drugs, medicaments and biological substances; Z91.048 Other nonmedicinal substance allergy status; Z91.09 Other allergy status, other than to drugs and biological substances; Z98.51 Tubal ligation status; Z79.899 Other long term (current) drug therapy; Z79.82 Long term (current) use of aspirin
CPT/HCPCS: 36415; 71045; 74177; 80048; 80053; 80178; 81003; 83690; 83735; 84100; 85025; 87635; 96361; 96374; 96375; 99285; G0378; J0690; J1100; J1650; J1885; J2405; J2704; J2710; J3010; J3480; Q9967; C1765; J0330; J2270; J2370; J3475; J3490; J7030; J7120